=== PATIENT | male | born 1945 | race Caucasian/White ===

== ENCOUNTER → 2016-09-09 | Day surgery (SDC) | payer MEDICARE, BC ==
[~2016-09-09] MED LIST: BACL10TA PO; DIAZ2TAB PO; HYDR-3516 PO; LIDOCAINE HCL 1% 30 ML VIAL INFIL ONE; LISI-515 PO; MEPERIDINE HCL 25 MG/ML VIAL IV ONE; MIDAZOLAM HCL 2 MG/2 ML VIAL IV ONE; MIRTA15 PO; NIAC500T5 PO; OMEP20TA PO; PROPOFOL 200 MG/20 ML AMP IV ONE; SODIUM CHLORIDE 0.9% 10 ML VIAL ONE; SOMA350T PO; STOO100T PO; methylPREDNISolone ACETATE 40 MG/ML VIAL I-ARTICULR ONE
--- NOTE | 2016-09-12 21:31 | M6 ---
cc: Levy TURCIOS DATE 09/09/2016 1945. PROCEDURE Radiofrequency rhizotomy bilateral lumbar facets (bilateral L3-4, L4-5 and L5-S1 facet joints) History and physical was completed and signed. Consent was signed. Procedure site was marked. Medications were listed and reconciled. Pain score was recorded. Allergies were noted. Time out was taken. Fluoroscopy time was recorded where applicable. Sedation was administered or directed by Dr. Turcios. The patient was given oxygen. The patient was monitored by a registered nurse. Total procedure time was greater than 15 minutes. Radiofrequency rhizotomy multiple bilateral L3-4, L4-5 and L5-S1 facet joints. Three levels are being done because imaging studies show arthritis in all lumbar facet joints and because each facet joint is innervated by the medial branches from the nerves above and below that particular joint. The patient reported 50% or greater pain relief from previous diagnostic facet joint blocks done with fluoroscopic guidance. PROCEDURE: An IV was started, blood pressure cuff, pulse oximeter and EKG were applied. The patient was placed in the prone position on a Loy table, sedated with small amounts of Versed and fentanyl and proprofol titrated to effect. Vital signs were monitored and remained stable throughout the procedure. The lumbar area was scrubbed with antimicrobial solution, prepped with 10% Betadine solution, draped with sterile drapes. Fluoroscopy was used in a slightly oblique angle (Alejandro dog view) to clearly visualize the target areas which were the cephalad most medial angle of the transverse processes as they met the pedicle in the anatomical location of the medial branch of the posterior primary ramus on the __ side at __ levels and the angle of the __ sacral ala. The skin was infiltrated with 1% Xylocaine using a 27 gauge needle. An insulated 20 gauge radiofrequency needle with a 10 mm curved tip was advanced to the above-mentioned target areas. Fluoroscopy was used to confirm the needle was properly placed and not near the nerve root. At no time did the patient report any paresthesias down the lower extremity. Once properly positioned thermal lesions took place at 80 degrees Centigrade x 100 seconds at each location. Then, a small amount of Depo-Medrol was injected at each location for a total of 40 mg of Depo-Medrol. Following this the patient was taken to the recovery room with stable vital signs, neurologically intact. W. MD DAVID Carroll /10:33 AM /9:24 PM
== END | disposition home or self-care (01) ==
LOC: PHSDC 08:52
PROVIDERS: ATTEND Pain Medicine Interventional Pain Medicine
DX: M54.9 Dorsalgia, unspecified (principal); M79.661 Pain in right lower leg
CPT/HCPCS: 64635; 64636; 99152; 99153; J1030; J2175; J2250